=== PATIENT | female | born 1990 | race American Indian/Alaskan Native ===

== ENCOUNTER 2022-08-01 16:20 | Emergency (ER) | payer MEDICAID ==
[2022-08-01 18:00] LABS: Basophils # (Auto) 0.1 K/mm3 (0.0-0.1); Basophils % (Auto) 0.9 % (0.0-1.8); Hematocrit 39.6 % (30.3-42.9); Hemoglobin 12.6 gm/dl (10.1-14.3); Lymphocytes # (Auto) 1.6 K/mm3 (1.2-5.4); Lymphocytes % (Auto) 17.9 % (13.4-35.0); Mean Corpuscular HGB Conc 32 % (30-34); Mean Corpuscular Volume 81 fl (79-97); Monocytes # (Auto) 0.6 K/mm3 (0.0-0.8); Monocytes % (Auto) 6.1 % (0.0-7.3); Platelet Count 292 K/mm3 (140-440); Red Blood Count 4.86 M/mm3 (3.65-5.03); Red Cell Distribution Width 18.3 % (13.2-15.2)
[2022-08-01 18:15] LABS: Alanine Aminotransferase 13 units/L (7-56); Albumin 5.1 g/dL (3.9-5); Blood Urea Nitrogen 12 mg/dL (7-17); Calcium 10.5 mg/dL (8.4-10.2); Hemolysis Index 2
[2022-08-01 18:20] LABS: BUN/Creatinine Ratio 20
[2022-08-01] MEDS ORDERED: ONDANSETRON 4 MG/2 ML INJ IV ONE (23:41)
[2022-08-01] MEDS ORDERED: FAMOTIDINE 20 MG/2 ML INJ IV ONE (23:41)
[2022-08-01] MEDS ORDERED: SODIUM CHLORIDE 0.9% 1000 ML 1,000 ML IV ONE (23:41)
[2022-08-02 00:06] LABS: Color,Urine Yellow (Yellow)
[2022-08-02 00:07] LABS: Bilirubin,Urine 1+ (Negative)
[2022-08-02 00:08] LABS: Blood,Urine Trace (Negative); Urobilinogen,Urine 0.2 mg/dL (<2.0)
[2022-08-02 00:09] LABS: Mucus,Urine 3+ /HPF
[2022-08-02 00:11] LABS: Ictotest,Urine Negative (Negative)
[2022-08-02 00:12] LABS: HCG Qualitative,Urine Negative (Negative)
[2022-08-02] MEDS ORDERED: KETOROLAC 30 MG/1 ML INJ IV ONE (00:21)
[2022-08-02] MEDS ORDERED: MORPHINE 4 MG/1 ML INJ IV ONE (00:21)
[2022-08-02] MEDS ORDERED: cloNIDine 0.1 MG TAB PO ONE ×2 (00:39→04:19)
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
[2022-08-02] MEDS ORDERED: PROMETHAZINE 25 MG TAB PO ONE (04:20)
[2022-08-02 05:14] VITALS: BP 108/73
== END 2022-08-02 06:47 | disposition home or self-care (01) ==
LOC: ED 16:20
DX: F11.23 Opioid dependence with withdrawal (principal); K52.9 Noninfective gastroenteritis and colitis, unspecified; N39.0 Urinary tract infection, site not specified; F17.200 Nicotine dependence, unspecified, uncomplicated
CPT/HCPCS: 36415; 80053; 81001; 81025; 83690; 85025; 87086; 96361; 96374; 96375; 99284; J1885; J2405; J3490; Q0169